=== PATIENT | female | born 1960 | race Two or more races ===

== ENCOUNTER 2017-06-05 15:00 | Emergency (ER) | payer OTHER ==
--- NOTE | 2017-06-05 15:25 | ER Document Report ---
ED General - General Chief Complaint: Urinary Problem Stated Complaint: URINARY PROBLEMS Time Seen by Provider: 06/05/17 15:11 TRAVEL OUTSIDE OF THE U[place] IN LAST 30 DAYS: No - HPI Patient complains to provider of: Burning urination chest wall pain Notes: Patient coming in for burning with urination ongoing for greater than 48 hours also chest wall pain ongoing greater than 48 hours. Patient states intermittent fevers and intermittent bilateral flank pain. Patient denies any vaginal discharge. Patient states that her chest a few days ago when getting a laundry heard a pop and since that time is also been hurting anterior chest wall. Denies any recent travel or trauma. Denies any shortness of breath. Patient resting comfortably upon my evaluation. Patient is Tamazight speaking and translation is performed by the sinus patient agrees with. - Related Data Allergies/Adverse Reactions: No Known Allergies Allergy (Unverified 06/05/17 15:04) Past Medical History - Social History Smoking Status: Unknown if Ever Smoked Family History: Reviewed & Not Pertinent Review of Systems - Review of Systems Constitutional: No symptoms reported EENT: No symptoms reported Cardiovascular: Chest pain Respiratory: Short of breath Gastrointestinal: No symptoms reported Genitourinary: No symptoms reported Female Genitourinary: No symptoms reported Musculoskeletal: No symptoms reported Skin: No symptoms reported Hematologic/Lymphatic: No symptoms reported Neurological/Psychological: No symptoms reported -: Yes All other systems reviewed and negative Physical Exam - Vital signs Vitals: Temp Pulse Resp BP Pulse Ox 97.9 F 74 16 136/94 H 96 06/05/17 15:08 06/05/17 15:08 06/05/17 15:08 06/05/17 15:08 06/05/17 15:08 Interpretation: Normal - General General appearance: Appears well, Alert - HEENT Head: Normocephalic, Atraumatic Eyes: Normal Pupils: PERRL - Respiratory Respiratory status: No respiratory distress Chest status: Tender - right sided Breath sounds: Normal Chest palpation: Normal - Cardiovascular Rhythm: Regular Heart sounds: Normal auscultation Murmur: No - Abdominal Inspection: Normal Distension: No distension Bowel sounds: Normal Tenderness: Nontender Organomegaly: No organomegaly - Back Back: Normal, Nontender - Extremities General upper extremity: Normal inspection, Nontender, Normal color, Normal ROM , Normal temperature General lower extremity: Normal inspection, Nontender, Normal color, Normal ROM , Normal temperature, Normal weight bearing. No: Geoffrey's sign - Neurological Neuro grossly intact: Yes Cognition: Normal Orientation: AAOx4 Jef Coma Scale Eye Opening: Spontaneous Jef Coma Scale Verbal: Oriented Rowley Coma Scale Motor: Obeys Commands Rowley Coma Scale Total: 15 Speech: Normal Motor strength normal: LUE, RUE, LLE, RLE Sensory: Normal - Psychological Associated symptoms: Normal affect, Normal mood - Skin Skin Temperature: Warm Skin Moisture: Dry Skin Color: Normal Course - Re-evaluation Re-evalutation: 06/05/17 16:05 EKG does not show any signs of cardiac ischemia. Patient's chest x-ray is also negative for acute traumatic findings. More likely chest wall pain due to the actual trauma or bruising. Patient is encouraged take Tylenol Motrin. Urinalysis does show signs of infection. We will start the patient on Keflex urine culture was sent patient was discharged home. Family patient agrees with plan - Vital Signs Vital signs: Temp Pulse Resp BP Pulse Ox 97.9 F 74 16 136/94 H 96 06/05/17 15:08 06/05/17 15:08 06/05/17 15:08 06/05/17 15:08 06/05/17 15:08 - Laboratory Laboratory results interpreted by me: 06/05/17 15:15 Urine Blood SMALL H Ur Leukocyte Esterase LARGE H Discharge - Discharge Clinical Impression: Chest wall pain UTI (urinary tract infection) Qualifiers: Urinary tract infection type: site unspecified Hematuria presence: with hematuria Qualified Code(s): N39.0 - Urinary tract infection, site not specified Condition: Good Instructions: Cephalexin ([facility]), Chest Wall Pain ([facility]), Family Physicians / Practices, Rib Contusion ([facility]), Urinary Tract Infection ([facility]) Additional Instructions: Please take medication as prescribed for urinary tract infection. We will send her urine for culture if we need to change her antibiotics we will call you if you do not hear from us then we do not need to change any antibiotics. I will still recommend following up with your primary care physician in the next 1-2 weeks. Return to ER symptoms worsen . Chest x-ray today does not show any signs of fracture or acute traumatic findings do believe your pain is still from bruising or contusion. He can take Tylenol Motrin for pain he also he may apply warm packs or ice packs. Prescriptions: Cephalexin Monohydrate [Keflex 500 mg Capsule] 500 mg PO Q6H 7 Days capsule Ibuprofen [Motrin 600 Mg Tablet] 600 mg PO TID #30 tablet Forms: Return to Work Print Language: Tamazight
--- NOTE | 2017-06-05 15:39 | RADIOLOGY REPORT (SQ) ---
EXAM DESCRIPTION: CHEST PA/LAT COMPLETED DATE/TIME: 06/05/2017 3:32 pm REASON FOR STUDY: sob COMPARISON: None. NUMBER OF VIEWS: Two view. TECHNIQUE: Frontal and lateral radiographic views of the chest acquired. LIMITATIONS: None. FINDINGS: LUNGS AND PLEURA: No opacities, masses or pneumothorax. No pleural effusion. Attenuated bl ood vessels and flattened joel-diaphragms. MEDIASTINUM AND HILAR STRUCTURES: No masses. No contour abnormalities. HEART AND VASCULAR STRUCTURES: Heart normal in size and contour. No evidence for failure. BONES: No acute findings. HARDWARE: None in the chest. OTHER: No other significant finding. IMPRESSION: COPD. NO ACUTE RADIOGRAPHIC FINDING IN THE CHEST. TECHNICAL DOCUMENTATION: JOB ID: [id number] [employer] All Rights Reserved Reading location - IP/workstation name: [email or web address]
[2017-06-05 15:48] LABS: AMORPHOUS SEDIMENT,URINE TRACE /HPF; APPEARANCE,URINE SLIGHTLY-CLOUDY; BILIRUBIN,URINE NEGATIVE (NEGATIVE); CALCIUM OXALATE CRYSTALS,URINE MODERATE /HPF; COLOR,URINE YELLOW; GLUCOSE, URINE NEGATIVE (NEGATIVE); KETONES,URINE NEGATIVE (NEGATIVE); LEUKOCYTE ESTERASE,URINE LARGE (NEGATIVE); NITRITE,URINE NEGATIVE (NEGATIVE); PROTEIN,URINE NEGATIVE (NEGATIVE); UROBILINOGEN,URINE NEGATIVE mg/dL (<2.0)
[2017-06-05] MEDS ORDERED: CEPHALEXIN 500 MG CAPSULE PO ONE (16:04)
--- NOTE | 2017-06-05 16:22 | EKG REPORT ---
SEVERITY:- BORDERLINE ECG - SINUS RHYTHM BORDERLINE T ABNORMALITIES, DIFFUSE LEADS : Confirmed by: Mikki Escamilla 05-Jun-2017 16:21:17
[2017-06-05 16:32] VITALS: BP 146/99
== END 2017-06-05 16:31 | disposition home or self-care (01) ==
LOC: ER 15:00
DX: N39.0 Urinary tract infection, site not specified (principal); R31.9 Hematuria, unspecified; R07.89 Other chest pain; R06.02 Shortness of breath
CPT/HCPCS: 71046; 81001; 87086; 87088; 87186; 93005; 93010; 99284

== ENCOUNTER 2017-10-04 22:37 | Emergency (ER) | payer MEDICAID, OTHER ==
--- NOTE | 2017-10-04 23:24 | ER Document Report ---
ED General - General Mode of Arrival: Medic Information source: Patient - with son translating, Relative TRAVEL OUTSIDE OF THE U.S. IN LAST 30 DAYS: No <DANIEL CRANE - Last Filed: 10/04/17 23:29> <CHATO KEANE - Last Filed: 10/05/17 01:19> - General Stated Complaint: BLOOD PRESSURE PROBLEM Time Seen by Provider: 10/04/17 23:09 Notes: 56 y.o female with HTN and heart palpitations presents to the ED via EMS s/p syncopal episode. Son at bedside reports that she was fine and talking on the phone tonight when he walked outside but when he came back he found her unresponsive on the floor without the phone but with her prayer materials lying next to her. He states that he called EMS when he found her and that she was unresponsive until she became slightly responsive when EMS preformed a sternal rub and more responsive after having an IV. He states that pt is complaining of a DUBOIS which he reports is a chronic issue that often presents with a spinning sensation and a "falling out". He states that she normally becomes unresponsive after each syncopal episode and that he normally calls EMS, he denies anything different with her episode tonight. Son denies patient having Head CTs when she has these episodes but reports that she will have an EKG. Pt is also complaining of a chronic numbness to her left sided extremities and chronic RT wrist pain. Pt takes 50mg of Losartan daily and another HTN/palpitations medication that she does not know the name of every night. Pt reports a PSHx of orthopedic surgery for bunion removal, thyroid removal for which she does not take any thyroid replacement medications and cataract surgery about 7 months. Son reports a history of depression and HLD but denies any current home medications for HLD. He denies that pt has a hx of DM or kidney issues. (DANIEL CRANE) History from the patient's son is that she is visiting here from [place], [place]. She is on 3 different blood pressure medications. She does not know the names of any of them, but they did bring 1 of the bottles with her which is empty. He feels certain she has all the medications at home. She has chronic headaches similar to the headache she is having tonight. She has spells where she feels dizzy and falls down or lays down and then is unresponsive for a brief period. A 911 call is regularly made and she is taken to a local emergency room where she is evaluated and then discharged home. She does not generally get CT scans of the head at the facilities where she is known and seen regularly for this presentation. She also does have a history of palpitations which one of her unknown blood pressure medications helps control. She also complains of pain to her right hand and wrist, he states she said it was not fractured, but was broken. She does move that hand quite well, there is no swelling, discoloration, or suggestion of recent injury. Physical exam does show her to have very tender posterior cervical muscles and scalp muscles consistent with chronic muscle tension headaches. She also does seem quite depressed, and the son reports that she does take antidepressants and is chronically depressed. (CHATO KEANE) - Related Data Allergies/Adverse Reactions: No Known Allergies Allergy (Unverified 06/05/17 15:04) Past Medical History - General Information source: Patient - with son translating, Relative - Social History Smoking Status: Unknown if Ever Smoked Family History: Reviewed & Not Pertinent - Past Medical History Cardiac Medical History: Reports: Hx Hypertension, Other - palpitations Renal/ Medical History: Denies: Hx Peritoneal Dialysis <DANIEL CRANE - Last Filed: 10/04/17 23:29> Review of Systems - Review of Systems Constitutional: No symptoms reported EENT: No symptoms reported Cardiovascular: No symptoms reported Respiratory: No symptoms reported Gastrointestinal: No symptoms reported Genitourinary: No symptoms reported Female Genitourinary: No symptoms reported Musculoskeletal: No symptoms reported Skin: No symptoms reported Hematologic/Lymphatic: No symptoms reported Neurological/Psychological: See HPI, Lost consciousness, Headaches -: Yes All other systems reviewed and negative <DANIEL CRANE - Last Filed: 10/04/17 23:29> Physical Exam <DANIEL CRANE - Last Filed: 10/04/17 23:29> <CHATO KEANE - Last Filed: 10/05/17 01:19> - Vital signs Vitals: Resp 16 10/04/17 22:47 - Notes Notes: Physical Exam: General: Alert. Moaning and groaning. HEENT: Normocephalic. Atraumatic. PERRL. Extraocular movements intact. Oropharynx clear. Neck: Supple. Cervical muscles tender to palpation. Respiratory: No respiratory distress. Clear and equal breath sounds bilaterally. Cardiovascular: Regular rate and rhythm. Abdominal: Normal Inspection. Non-tender. No distension. Percussion resonant, normal bowel sounds. Back: Non-tender. No deformity or step off. Extremities: Moves all four extremities. Upper extremities: Normal inspection. Normal ROM. Lower extremities: Normal inspection. No edema. Normal ROM. Neurological: Normal cognition. AAOx3. Psychological: Depressed. Moaning and groaning. Skin: Warm. Dry. Normal color. (DANIEL CRANE) Course <DANIEL CRANE - Last Filed: 10/04/17 23:29> - Laboratory Result Diagrams: 10/05/17 00:05 10/05/17 00:05 - EKG Interpretation by Me EKG shows normal: Sinus rhythm, [place], Intervals, QRS Complexes. abnormal: ST-T Waves - Borderline anterior T abnormalities Rate: Normal - 66 Rhythm: NSR When compared to previous EKG there are: No significant change <CHATO KEANE - Last Filed: 10/05/17 01:19> - Re-evaluation Re-evalutation: 10/05/17 01:13 When I went to check on the patient, she was snoring and her headache had improved according to the son. She did wake up while I was in the room, and expressed the need to go to the restroom to urinate. I encouraged her son to collect all of her medications at home, be sure she does have all the medicine she supposed to take, to follow with a local urgent care for refills if there is any chance she will be staying here longer than the medication will last. (CHATO KEANE) - Vital Signs Vital signs: Temp Pulse Resp BP Pulse Ox 98.1 F 12 162/99 H 97 10/04/17 22:53 10/04/17 23:01 10/04/17 23:01 10/04/17 23:01 - Laboratory Laboratory results interpreted by me: 10/05/17 10/05/17 00:05 00:05 RDW 14.3 H Potassium 3.3 L Glucose 163 H Discharge <DANIEL CRANE - Last Filed: 10/04/17 23:29> <CHATO KEANE - Last Filed: 10/05/17 01:19> - Discharge Clinical Impression: Muscle tension headache High blood pressure Qualifiers: Hypertension type: essential hypertension Qualified Code(s): I10 - Essential ( primary) hypertension Syncopal episodes Qualifiers: Syncope type: unspecified Qualified Code(s): R55 - Syncope and collapse Condition: Stable Disposition: HOME, SELF-CARE Additional Instructions: Tension Headache: Your problem has been diagnosed as muscle tension headache. This very common type of headache occurs because of tightness in the muscles of the head and neck. The cause may be neck or jaw joint problems, but most commonly the cause is emotional stress. The headache may last hours or days. The treatment of uncomplicated tension headaches is rest and pain medication. Often, the newer antiinflammatory pain medications are prescribed, as these also decrease the irritability of the painful tissues. Muscle relaxers , cold packs, or warm packs are sometimes helpful. Anti-anxiety medication or narcotics are sometimes needed temporarily, but are best avoided in the long run. Your doctor has evaluated your headache problem, and finds no evidence of a serious health problem as a cause for the headache. If your headache becomes more severe, or if new symptoms develop (such as fever, stiff neck, vomiting, or decreasing alertness) you should be re-examined by the physician. High Blood Pressure: When your blood pressure was taken today it was elevated. Sometimes, stress or illness causes a temporary elevation of your blood pressure. We suggest that you get your blood pressure measured three more times during the next few days to see if this is more than a temporary abnormality. If your blood pressure is greater than 150/90 on each occasion, you must reevaluate your current treatment regimen. If left untreated, hypertension greatly enhances your risk for developing heart disease and strokes. Please don't ignore this problem. Syncopal Episode: Syncope (fainting or near-fainting) can occur from many different health problems. Or it can be a simple fainting spell requiring no treatment. It is safe for you to go home, but further evaluation will likely be necessary. Your work-up may include tests for internal bleeding, heart disease, medication problems, or near-strokes. Tests are not always required, however, depending on the nature of your problem. The warning signs of an impending faint include: dizziness, lightheadedness , nausea, hot flashes, tingling, and weakness. If this happens, lay down and put your feet up, then wait until all of these symptoms have passed before standing up again. If these episodes become recurrent, or if you develop chest pain, heart palpitations, mental confusion, blurred vision, or headache, then you should call the physician, or go to the emergency room. Be sure to take all of your blood pressure medications as they are prescribed. Make a list of all of your medications and carry it with you all the time. Follow-up with a local medical doctor for refills if there is any chance you will run out of your medication before you return home to [place]. Take Tylenol and ibuprofen or Aleve for your headaches if needed. Follow-up with a local medical doctor if not improving. RETURN TO THE EMERGENCY ROOM IF ANY NEW OR WORSENING SYMPTOMS. Jaime Attestation: 10/05/17 01:19 I personally performed the services described in the documentation, reviewed and edited the documentation which was dictated to the scribe in my presence, and it accurately records my words and actions. (CHATO KEANE) Tarshaibe Documentation - Scribe Written by Jaime:: Jaime Hammond 10/04/17 [id number] acting as scribe for :: Joel <DANIEL CRANE - Last Filed: 10/04/17 23:29>
[2017-10-04] MEDS ORDERED: DIPHENHYDRAMINE HCL 50 MG/ML VIAL IV ONE (23:30)
[2017-10-04] MEDS ORDERED: PROCHLORPERAZINE EDISYLATE INJ 10 MG/2 ML VIAL IV ONE (23:30)
[2017-10-05 00:27] LABS: ALANINE AMINOTRANSFERASE 25 U/L (9-52); ALBUMIN 4.3 g/dL (3.5-5.0); ALKALINE PHOSPHATASE 83 U/L (38-126); ANION GAP 12 (5-19); ASPARTATE AMINO TRANSFERASE 22 U/L (14-36); BILIRUBIN,DIRECT 0.2 mg/dL (0.0-0.4); BILIRUBIN,TOTAL 0.4 mg/dL (0.2-1.3); BLOOD UREA NITROGEN 8 mg/dL (7-20); CALCIUM 9.3 mg/dL (8.4-10.2); CARBON DIOXIDE 26 mmol/L (22-30); CHLORIDE 105 mmol/L (98-107); CREATINE KINASE 43 U/L (30-135); GLUCOSE 163 mg/dL (75-110); POTASSIUM 3.3 mmol/L (3.6-5.0); TOTAL PROTEIN 7.1 g/dL (6.3-8.2)
[2017-10-05 00:29] LABS: ABSOLUTE EOSINOPHILS # (AUTO) 0.2 10^3/uL (0.0-0.6); ABSOLUTE LYMPHOCYTES (AUTO) 1.5 10^3/uL (0.5-4.7); ABSOLUTE MONOCYTES (AUTO) 0.5 10^3/uL (0.1-1.4); ABSOLUTE NEUT (AUTO) 2.7 10^3/uL (1.7-8.2); BASOPHILS % (AUTO) 0.6 % (0-2); EOSINOPHILS % (AUTO) 3.7 % (0-6); HEMATOCRIT 37.7 % (36.0-47.0); HEMOGLOBIN 13.2 g/dL (12.0-15.5); LYMPHOCYTES % (AUTO) 30.8 % (13-45); MEAN CORPUSCULAR HEMOGLOBIN 30.6 pg (27.0-33.4); MEAN CORPUSCULAR HGB CONC 35.1 g/dL (32.0-36.0); MEAN CORPUSCULAR VOLUME 87 fl (80-97); MONOCYTES % (AUTO) 9.3 % (3-13); PLATELET COUNT 165 10^3/uL (150-450); RED BLOOD COUNT 4.32 10^6/uL (3.72-5.28); RED CELL DISTRIBUTION WIDTH 14.3 % (11.5-14.0); SEGMENTED NEUTROPHILS % (AUTO) 55.6 % (42-78); TOTAL CELLS COUNTED % (AUTO) 100 %; WHITE BLOOD COUNT 4.8 10^3/uL (4.0-10.5)
[2017-10-05 00:44] LABS: FREE T3 4.11 pg/mL (2.77-5.27); FREE T4 (FREE THYROXINE) 1.14 ng/dL (0.78-2.19)
[2017-10-05 00:58] LABS: THYROID STIMULATING HORMONE 3.2 uIU/mL (0.47-4.68)
[2017-10-05 02:06] VITALS: BP 126/88
--- NOTE | 2017-10-05 15:11 | EKG REPORT ---
SEVERITY:- BORDERLINE ECG - SINUS RHYTHM BORDERLINE T ABNORMALITIES, ANTERIOR LEADS : Confirmed by: Radha Kim MD 05-Oct-2017 15:11:03
== END 2017-10-05 02:06 | disposition home or self-care (01) ==
LOC: ER 22:37
DX: G44.209 Tension-type headache, unspecified, not intractable (principal); I10 Essential (primary) hypertension; R55 Syncope and collapse
CPT/HCPCS: 93005; 99284; 96374; 96375; 36415; 84439; 82550; 84443; 85025; 80053; 84484; 84481; 83036; 93010; J1200; J0780